=== PATIENT | male | born 1990 | race Caucasian/White ===

== ENCOUNTER 2025-03-01 13:56 | Emergency (ER) | payer OTHER, SELFPAY ==
[2025-03-01 13:59] VITALS: BP 143/96
--- NOTE | 2025-03-01 16:21 | ED.SKININJ ---
HPI-Injury
<Rosa Dubon DO, Resident - Last Filed: 03/01/25 18:52>
General
Chief Complaint: Skin Surface Trauma
Source: patient
Time Seen by Provider: 03/01/25 16:16
History of Present Illness-Injury
Is this injury a work related problem?: Yes
Is pt an associate of [facility]?: No
Initial Injury comments:
Patient is a 34 yo male with no PMH. Patient cut his hand on the metal windowsill while at work at the [employer] [place] earlier today. The laceration is on the medial side of the palmar side of his left hand. His hand was wrapped with guaze by a nurse
at the [facility] and he came here. He has full ROM of hand and fingers. Patient states there is numbness in his fifth finger. The laceration is superficial and about 1.5 inches in length.
Past History
<Rosa Dubon DO, Resident - Last Filed: 03/01/25 18:52>
Past History
ED Past Medical History: None
ED Past Surgical History: None
Review of Systems
<Rosa Dubon DO, Resident - Last Filed: 03/01/25 18:52>
Review of Systems
Allergies reviewed?: Yes
All Other Systems: ROS reviewed and negative except as documented in HPI and ROS
Skin Exam
<Rosa Dubon DO, Resident - Last Filed: 03/01/25 18:52>
Laceration
Left Medial Palmar Hand:
Length in cm: 4
Orientation: horizontal
Type of Laceration: simple
Any active bleeding?: low grade venous oozing
Distal skin color and temperature: normal-warm & good color
Normal distal neurovascular exam: Yes
Range of motion: full
Phy Exam
<Rosa Dubon DO, Resident - Last Filed: 03/01/25 18:52>
Physical Exam
Physical Exam:
Patient AAOx3
General: not in acute distress
Extremity: Laceration on soriano surface of left hand
Course
<Rosa Dubon DO, Resident - Last Filed: 03/01/25 18:52>
Vital Signs
Initial and Last Documented VS:
Initial Vital Signs
Temp Pulse Resp BP Pulse Ox
97.5 F 106 20 143/96 98
03/01/25 13:59 03/01/25 13:59 03/01/25 13:59 03/01/25 13:59 03/01/25 13:59
Last Documented Vital Signs
Temp Pulse Resp BP Pulse Ox
97.5 F 106 20 143/96 98
03/01/25 13:59 03/01/25 13:59 03/01/25 13:59 03/01/25 13:59 03/01/25 16:25
<Sabrina Us DO - Last Filed: 03/01/25 19:11>
Vital Signs
Initial and Last Documented VS:
Initial Vital Signs
Temp Pulse Resp BP Pulse Ox
97.5 F 106 20 143/96 98
03/01/25 13:59 03/01/25 13:59 03/01/25 13:59 03/01/25 13:59 03/01/25 13:59
Last Documented Vital Signs
Temp Pulse Resp BP Pulse Ox
97.5 F 106 20 143/96 98
03/01/25 13:59 03/01/25 13:59 03/01/25 13:59 03/01/25 13:59 03/01/25 16:25
Procedures
<Sabrina Us DO - Last Filed: 03/01/25 19:11>
Laceration Closure
Left Upper Lateral Palmar Hand:
Status of Wound: clean
Size of Wound in cm: 1.5
Description of Wound Edges: ragged
Preparation: cleaned with saline and cleaned with SurClens
Anesthesia: 1% Lidocaine (3ml)
Revision/Debridement: minor revision
Wound exploration: extensive cleaning of contaminated wound and explored to base- no FB
Type of Closure: single layer closure
Skin Closure Material: 4-0 nylon
Number of sutures: 3
Additional information:
Tolerated well. Nonadherent dressing applied with Kerlix
<Sabrina Us DO - Last Filed: 03/01/25 19:11>
MDM/Problems Addressed
Differential Diagnosis Includes:
Soft tissue injury, retained foreign body, deeper structure injury along with other etiologies considered
Chronic conditions affecting care:
none
<Rosa Dubon DO, Resident - Last Filed: 03/01/25 18:52>
*Pulse Oximetry
SaO2: 98
Oxygen Mode of Delivery: Room air
*Critical Care Note
Total Time (30-74mins, 75-104mins- exclusive of procedures): Not Applicable
<Sabrina Us DO - Last Filed: 03/01/25 19:11>
*Pulse Oximetry
Patient hypoxic: no
ED Attending Note
<Rosa Dubon DO, Resident - Last Filed: 03/01/25 18:52>
-
Portions of this chart may have been created with voice recognition software.� Occasional wrong word or��sound alike� substitutions may have occurred due to the inherent limitations of voice recognition software.
<Sabrina Us DO - Last Filed: 03/01/25 19:11>
ED Attending Note
Patient seen and examined by attending physician: Yes
I performed the substantive portion of visit, reviewed & personally made and approve the management plan that is documented in note by myself or JEMAL.: Yes
I performed a history and physical exam of patient and discussed management with resident, I reviewed resident's note and agree with documented findings and plan of care.: Yes
ED Attending Note:
34-year-old male presents to the ER for evaluation of injury to his left hand sustained while at work just prior to arrival. Dressing was applied by another staff member prior to his arrival. Patient is right-handed. Patient is up-to-date on
tetanus. He has no prior medical history. Vital signs reviewed, patient is awake, alert, appears in no acute distress, mucous membranes moist, hand exam reveals intact sensation to light touch left hand, there is a 1.5 cm irregular laceration with
exposure of subcutaneous fat present along the medial palmar aspect of the left hand, there is moderate surrounding ecchymosis, no deeper structure injury noted, patient has no limitation active range of motion of the fifth finger and has intact
sensation to light touch along with brisk cap refill. Wound was repaired by myself with good approximation. I discussed with patient anticipated normal healing course along with infection warning symptoms and strict return precautions. Patient
felt comfortable with plan for discharge and had no questions prior to leaving department.
Discharge Plan
Departure
Patient Disposition: Home (Routine Discharge)
Date of Disposition: 03/01/25
Time of Disposition: 17:30
Patient with high blood pressure during this ER visit?: No
Discharge Problem:
Hand laceration
Instructions: Laceration Repair With Stitches (DC)
Referrals:
NONE,* [Family Provider, Internal Medicine]
Activity Restrictions/Additional Instructions:
Please keep hand clean and dry for the next 24 hours. After this time you may remove dressing as applied in the ER and gently wash your hand with soap and water twice daily. Please keep clean and covered until sutures are removed. You may apply a
small amount of topical antibiotic ointment (bacitracin or similar as available [id number]) before applying dressing in order to prevent dressing from sticking. Return to the ER or follow-up with your primary care physician in 7 to 10 days
for suture removal or sooner if needed for any concern of infection as discussed-redness, worsening pain, swelling, drainage that looks like pus or fever
Interventions
Interventions:
*Nursing Disposition Last Done: 03/01/25 17:42
ED-Skin Assessment Last Done: 03/01/25 17:23
Discharge Date and Time
Discharge Date/Time: 03/01/25 17:42
Print Language: CITIZEN [place]
== END 2025-03-01 17:42 | disposition home or self-care (01) ==
LOC: EMR 13:56
PROVIDERS: EMERGENCY PHYSICIAN Emergency Medicine
DX: S61.412A Laceration without foreign body of left hand, initial encounter (principal); W45.8XXA Other foreign body or object entering through skin, initial encounter; Y99.0 Civilian activity done for income or pay
CPT/HCPCS: 12041; 99282